=== PATIENT | female | born 1990 | race Caucasian/White ===

== ENCOUNTER 2021-04-10 15:45 | Inpatient (IN) | payer BC, OTHER ==
[~2021-04-10] VITALS: Ht 172.7 cm; Wt 68.2 kg
[~2021-04-10 15:45] MED LIST: IBUP-1223 PO; OXYC1TAB12 PO
[2021-04-10] MEDS ORDERED: LIDOCAINE 1%, 20ML ONE (15:48)
[2021-04-10] MEDS ORDERED: OXYTOCIN 30U/ 0.9% NaCL 500ML 500 ML ONE (15:49)
[2021-04-10] MEDS ORDERED: METOCLOPRAMIDE 5 MG/ML, 2ML IV PRN (16:00)
[2021-04-10] MEDS ORDERED: DOCUSATE 100 MG CAPSULE PO PRN (16:00)
[2021-04-10] MEDS ORDERED: MISOPROSTOL 200 MCG TABLET PR PRN (16:00)
[2021-04-10] MEDS ORDERED: SIMETHICONE 80 MG CHEW TAB PO PRN (16:00)
[2021-04-10] MEDS ORDERED: SODIUM CHLORIDE 0.9% 250 ML IV ONE (16:00)
[2021-04-10] MEDS ORDERED: HYDROcodone/APAP 5/325 TABLET PO PRN (16:00)
[2021-04-10] MEDS ORDERED: ONDANSETRON 2MG/ML, 2ML IV PRN (16:00)
[2021-04-10] MEDS ORDERED: FENTANYL PF 100 MCG/2ML ONE ×2 (16:00→18:19)
[2021-04-10] MEDS ORDERED: IBUPROFEN 600 MG TABLET PO PRN (16:00)
[2021-04-10] MEDS ORDERED: OXYTOCIN 30U/ 0.9% NaCL 500ML 500 ML IV SCH ×2 (16:00)
[2021-04-10] MEDS ORDERED: TRANEXAMIC ACID 1,000 MG in SODIUM CHLORIDE 0.9% 100 ML IVPB ONE (16:00)
[2021-04-10] MEDS ORDERED: MISOPROSTOL 200 MCG TABLET ONE (16:03)
[2021-04-10 16:24] LABS: MEAN CORPUSCULAR HEMOGLOBIN 30.6 pg (27.0-34.8); MEAN PLATELET VOLUME 9.4 fL (7.4-10.4); PLATELET COUNT 247 x10^3/uL (130-400); RED BLOOD COUNT 3.18 x10^6/uL (3.82-5.3); RED CELL DISTRIBUTION WIDTH 14.3 % (9.6-15.2)
[2021-04-10] MEDS ORDERED: AMPICILLIN 2 GM in SODIUM CHLORIDE 0.9% 100 ML IV ONE (16:30)
[2021-04-10] MEDS ORDERED: MISOPROSTOL 200 MCG TABLET PR ONE (17:00)
[2021-04-10] MEDS ORDERED: LACTATED RINGERS 1,000 ML IV SCH (17:00)
[2021-04-10 17:19] LABS: BAND#(MANUAL) 1.23 x10^3/uL; BANDS%(MANUAL) 4 % (0-7); LYMPH#(MANUAL) 0.92 x10^3/uL (1-3.4); LYMPHS% (MANUAL) 3 % (22-44); MONOS#(MANUAL) 0.92 x10^3/uL (0.3-2.7); MONOS% (MANUAL) 3 % (2-9); SEG#(MANUAL) 27.63 x10^3/uL (1.8-6.8); SEGS% (MANUAL) 90 % (42-75)
[2021-04-10 17:20] LABS: ANISOCYTOSIS 1+
[2021-04-10 17:21] LABS: <PLATELET ESTIMATE> ADEQUATE; <PLT MORPHOLOGY> NORMAL PLT MORPH
[2021-04-10] MEDS ORDERED: SODIUM CITRATE/CITRIC ACID 15 ML UDC ONE (18:13)
[2021-04-10] MEDS ORDERED: CEFAZOLIN 1,000 MG ONE (18:19)
[2021-04-10] MEDS ORDERED: MIDAZOLAM 1 MG/ML, 5ML ONE (18:19)
[2021-04-10] MEDS ORDERED: SODIUM CITRATE/CITRIC ACID 30 ML UDC PO ONE (18:30)
[2021-04-10 18:47] LABS: MEAN CORPUSCULAR HEMOGLOBIN 30.5 pg (27.0-34.8); MEAN PLATELET VOLUME 9.3 fL (7.4-10.4); PLATELET COUNT 228 x10^3/uL (130-400); RED BLOOD COUNT 2.77 x10^6/uL (3.82-5.3); RED CELL DISTRIBUTION WIDTH 14.4 % (9.6-15.2)
[2021-04-10] MEDS ORDERED: MEPERIDINE/PF 100 MG/ML ONE (18:59)
[2021-04-10] MEDS ORDERED: PHARMACOKINETIC MONITORING MC PRN (19:30)
[2021-04-10] MEDS ORDERED: GENTAMICIN PER PHARMACY MC PRN (19:30)
[2021-04-10] MEDS: GENTAMICIN 120 MG in SODIUM CHLORIDE 0.9% 50 ML IV SCH (19:45)
[2021-04-10] MEDS: CLINDAMYCIN PMX 900MG/50ML 50 ML IV SCH (21:15)
[2021-04-11] MEDS ORDERED: ACETAMINOPHEN 500 MG TABLET PO ONE (01:00)
[2021-04-11 02:43] LABS: BASOPHILS % (AUTO) 0 % (0-1); EOSINOPHILS % (AUTO) 0 % (1-7); LYMPHOCYTES % (AUTO) 10 % (22-44); MEAN CORPUSCULAR HGB CONC 34.1 g/dL (32.4-35.8); MEAN PLATELET VOLUME 9.1 fL (7.4-10.4); MONOCYTES % (AUTO) 8 % (2-9); NEUTROPHILS % (AUTO) 82 % (42-75); PLATELET COUNT 158 x10^3/uL (130-400); RED CELL DISTRIBUTION WIDTH 14.2 % (9.6-15.2)
[2021-04-11 02:51] LABS: CREATININE 0.36 mg/dL (0.55-1.02)
[2021-04-11] MEDS ORDERED: DIPHENHYDRAMINE 12.5MG/5ML, 10ML UDC PO ONE (03:00)
[2021-04-11] MEDS ORDERED: DIPHENHYDRAMINE 25 MG CAPSULE ONE (03:01)
[2021-04-11 03:09] VITALS: BP 121/67
[2021-04-11] MEDS: GENTAMICIN 120 MG in SODIUM CHLORIDE 0.9% 50 ML IV SCH (04:23)
[2021-04-11] MEDS: CLINDAMYCIN PMX 900MG/50ML 50 ML IV SCH (04:55)
[2021-04-11 05:08] VITALS: BP 119/67
[2021-04-11] MEDS ORDERED: PRENATAL VIT/IRON/FA 1 EACH TABLET PO SCH (09:00)
[2021-04-11 10:21] LABS: BASOPHILS % (AUTO) 0 % (0-1); EOSINOPHILS % (AUTO) 0 % (1-7); LYMPHOCYTES % (AUTO) 10 % (22-44); MEAN CORPUSCULAR HEMOGLOBIN 30.1 pg (27.0-34.8); MEAN CORPUSCULAR HGB CONC 33.6 g/dL (32.4-35.8); MONOCYTES % (AUTO) 7 % (2-9); NEUTROPHILS % (AUTO) 83 % (42-75); PLATELET COUNT 146 x10^3/uL (130-400); RED BLOOD COUNT 2.63 x10^6/uL (3.82-5.3); RED CELL DISTRIBUTION WIDTH 14.5 % (9.6-15.2)
== END 2021-04-11 11:30 | disposition home or self-care (01) | DRG 769 ==
LOC: LDOP 15:45 → LDIP 15:52 → 2NE 22:53
PROVIDERS: ADMIT Obstetrics & Gynecology; ATTEND Obstetrics & Gynecology
PROC: 10D17ZZ Extraction of Products of Conception, Retained, Via Natural or Artificial Opening (ICD-10-PCS; principal; 2021-04-10)
PROC: 0TQDXZZ Repair Urethra, External Approach (ICD-10-PCS; 2021-04-10)
PROC: 30233N1 Transfusion of Nonautologous Red Blood Cells into Peripheral Vein, Percutaneous Approach (ICD-10-PCS; 2021-04-11)
DX: O72.0 Third-stage hemorrhage (principal); O71.5 Other obstetric injury to pelvic organs; Z20.822 Contact with and (suspected) exposure to COVID-19
CPT/HCPCS: 36415; 59160; 82565; 84520; 85025; 85027; 86592; 86850; 86900; 86923; 87635; 88305; 88307; G0378; J0290; J0690; J2250; J3010; J1580; J2175; J2590; J2765; J7050; J7120; P9016